=== PATIENT | female | born 1955 | race Caucasian/White ===

== ENCOUNTER 2021-02-08 08:36 | Emergency (ER) | payer MEDICARE ==
[~2021-02-08] VITALS: Ht 149.9 cm; Wt 41.4 kg
[2021-02-08 09:10] VITALS: BP 141/79
[2021-02-08] MEDS ORDERED: CHLO25CA10 PO (09:32)
== END 2021-02-08 09:56 | disposition home or self-care (01) ==
LOC: ER 08:37
DX: Z02.89 Encounter for other administrative examinations (principal); F10.10 Alcohol abuse, uncomplicated; F17.200 Nicotine dependence, unspecified, uncomplicated; Z72.89 Other problems related to lifestyle; Z79.899 Other long term (current) drug therapy; Y90.9 Presence of alcohol in blood, level not specified
CPT/HCPCS: 99283